=== PATIENT | male | born 1995 | race Caucasian/White ===

== ENCOUNTER 2017-12-30 15:00 | Emergency (ER) | payer SELFPAY ==
--- NOTE | 2017-12-30 16:52 | EDM.PDOC ---
ED HPI GENERAL MEDICAL PROBLEM - General Chief Complaint: Genitourinary Problem Stated Complaint: POSSIBLE INFECTION Time Seen by Provider: 12/30/17 15:45 Source of Information: Reports: Patient, RN Notes Reviewed - History of Present Illness INITIAL COMMENTS - FREE TEXT/NARRATIVE: 22-year-old male presents to ED for possible infection. His [place] is not fluent but as best I can understand his who lives in [place] has asked he be checked out for possible infection. He indicates that he has itchiness of his arms and legs, no rash. Triage note stated something about possible herpes but I am not getting that information from patient. He does work construction. - Related Data Allergies Allergy/AdvReac Type Severity Reaction Status Date / Time No Known Allergies Allergy Verified 12/30/17 15:12 Home Meds: Home Meds . [No Known Home Meds] 12/30/17 [History] Past Medical History - Past Health History Medical/Surgical History: Denies Medical/Surgical History Social & Family History - Tobacco Use Smoking Status *Q: Never Smoker - Caffeine Use Caffeine Use: Reports: None - Recreational Drug Use Recreational Drug Use: No ED ROS GENERAL - Review of Systems Review Of Systems: See Below Constitutional: Denies: Fever HEENT: Denies: Throat Pain Respiratory: Denies: Shortness of Breath Cardiovascular: Denies: Chest Pain GI/Abdominal: Denies: Abdominal Pain, Vomiting Skin: Reports: Pruritis. Denies: Rash ED EXAM, SKIN/RASH Exam: See Below General Appearance: Alert, No Apparent Distress Eye Exam: Bilateral Eye: PERRL Throat/Mouth: Normal Inspection Head: Atraumatic. No: Facial Swelling Neck: Supple, Full Range of Motion Respiratory/Chest: No Respiratory Distress, Lungs Clear, Normal Breath Sounds Cardiovascular: Regular Rate, Rhythm (Male) Exam: Other (No rash or other lesions visible). No: Penile Lesions, Urethral Discharge Extremities: Normal Inspection, Normal Range of Motion Skin: Warm, Dry, Normal Color, No Rash (No rash visible face neck trunk upper or lower extremities.) Course - Vital Signs Last Recorded V/S: Last Vital Signs Temp 98.2 F 12/30/17 15:10 Pulse 92 12/30/17 15:10 Resp 16 12/30/17 15:10 BP 139/88 12/30/17 15:10 Pulse Ox 100 12/30/17 15:10 Departure - Departure Time of Disposition: 16:49 Disposition: Home, Self-Care 01 Condition: Fair Clinical Impression: Itching - Discharge Information Referrals: PCP,None [Primary Care Provider] - Forms: ED Department Discharge Additional Instructions: A medical screening exam has been done here in the emergency department this afternoon. We are not finding any evidence for infection. We are not finding any significant skin rash or lesions at this time. The itchiness that you have is likely related to dust or other some other type of exposure from work. Claritin is an antihistamine medication that will help your itchiness. Recommend dosage is 10 mg daily. Continue that once daily until itchiness has completely resolved. If there is further difficulty follow-up at our [facility] medical clinic. Call [phone] as needed for appointment. daily
== END 2017-12-30 17:07 | disposition home or self-care (01) ==
LOC: JD.ED 15:00
DX: L29.9 Pruritus, unspecified (principal)
CPT/HCPCS: 99283